=== PATIENT | female | born 1960 | race Hispanic/Latino ===

== ENCOUNTER 2025-06-26 15:19 | Emergency (ER) | payer OTHER, SELFPAY ==
--- NOTE | ~2025-06-26 | XR_ITS ---
EXAMINATION: XR toe 5th RT min 2V DATE: 06/26/2025 15:45 INDICATION: Injured right fifth toe. Stubbed toe. TECHNIQUE: 3 COMPARISON: None FINDINGS: [ No significant degenerative change.] Bones appear osteopenic. Mildly displaced fracture of the distal third of the proximal phalanx of the fifth toe with adjacent soft tissue swelling. No other fracture identified. [ No radiopaque foreign body.] [ No sclerotic or destructive bone lesions.] IMPRESSION: 1. Mildly displaced fracture of the distal third of the proximal phalanx of the fifth toe with adjacent soft tissue swelling. Reviewed, dictated and finalized at location Q.
--- NOTE | 2025-06-26 15:22 | ED.LOWEXIN ---
HPI - Extremity Injury (Lower) General Chief Complaint: Extremity Injury, Lower Stated Complaint: R stubbed pinky toe Source: patient and RN notes reviewed Mode of arrival: ambulatory Limitations: no limitations History of Present Illness HPI Narrative: patient is a 65-year-old female who presents to the [facility] with complaints of a right 5th toe injury. Patient states that she stubbed the toe on a case of bottled water in her kitchen approximately 3 weeks ago. She has had ongoing pain, swelling, and bruising to the right 5th toe since the incident. She reports limited range of motion of the toe. She is neurovascularly intact. Sensation is intact. Cap refill is normal. patient states that she has been wearing a walking boot since the injury. Related Data Home Medications ?Medication ?Instructions ?Recorded ?Confirmed ?Last Taken ?Type No Home Medications 06/26/25 06/26/25 Unknown History Allergies Allergy/AdvReac Type Severity Reaction Status Date / Time No Known Allergies Allergy Verified 06/26/25 15:30 Review of Systems Review of Systems: CONSTITUTIONAL: Denies fever, chills, or sweats. EYES: Denies visual changes, redness, or discharge. ENT: Denies otalgia and sore throat CARDIOVASCULAR: Denies chest pain, palpitations, or edema. RESPIRATORY: Denies cough or dyspnea. GASTROINTESTINAL: Denies abdominal pain, nausea, vomiting, or diarrhea. GENITOURINARY: Denies dysuria or hematuria. SKIN: Denies rash or itching. MUSCULOSKELETAL: Reports right 5th toe pain and swelling NEUROLOGIC: Denies headache, numbness, or weakness. Pertinent positives per HPI. PMFSH Comments At the time of my signature, I reviewed and agree with the nursing past medical, surgical, social, and family history. There is no relevant family history pertinent to the patient complaint. Exam Narrative: GENERAL: This is a well-nourished, well-developed patient, in no apparent distress. HEAD: normocephalic, atraumatic. EYES: PERRL. Sclera clear/white. Vision is grossly intact. EARS: External ears normal, auditory canals clear and without drainage, TMs normal without perforation. Hearing grossly intact. NOSE: External nose normal with no obvious nasal discharge, nares without redness, no rhinorrhea. THROAT: Mucous membranes moist, posterior pharynx clear. NECK: Neck supple, non-tender without lymphadenopathy, masses or thyromegaly. CARDIOVASCULAR: Regular rate and rhythm without murmurs, gallops, or rubs. RESPIRATORY: Clear to auscultation. Breath sounds equal bilaterally. No wheezes, rales, or rhonchi. GASTROINTESTINAL: Abdomen soft, non-tender, nondistended. Bowel sounds are active. No hepato-splenomegaly, or palpable masses. No guarding. SKIN: warm, intact with no suspicious lesions or rash, good texture and turgor. NEURO: awake, alert, and oriented to person, place and time. There were no obvious focal neurologic abnormalities. EXTREMITIES: Tenderness to the promixal phalanx of the right fifth toe with mild swelling and bruising. Limited ROM of the toe. Neurovascular status intact. Sensation intact. Cap refill normal. Course Course Level of Care: Express Care Visit Vital Signs Vital signs: Vital Signs Temperature 97.5 F L 06/26/25 15:30 Pulse Rate 80 06/26/25 15:30 Respiratory Rate 16 06/26/25 15:30 Blood Pressure 150/81 H 06/26/25 15:30 Pulse Oximetry 98 06/26/25 15:30 Temperature 97.5 F L 06/26/25 15:30 Pulse Rate 80 06/26/25 15:30 Respiratory Rate 16 06/26/25 15:30 Blood Pressure 150/81 H 06/26/25 15:30 Pulse Oximetry 98 06/26/25 15:30 Reviewed MDM - Extremity Injury (Lower) MDM Narrative Medical decision making narrative: Use the RICE method at home. If symptoms persist in 1 week after conservative treatment, follow-up with specialist. Differential Diagnosis Differential diagnosis: Likely fracture of toe and other (toe contusion, toe sprain) Imaging Data Attestation: I personally reviewed and interpreted this imaging study as follows: Radiologist's impression: [facility] [address] [facility] [place] [facility]– [place] [address] XRay Report Signed Patient: Deedee Jose : 1960 MR#: [id number] Age: 65 Acct:[id number] Loc: [facility] ADM Date: 06/26/[address]: Ordering Physician: Vinita Irby APRN Date of Service: 06/26/25 Procedure(s): XR toe 5th RT min 2V Accession Number(s): [id number] cc: Vinita Irby APRN; UNKNOWN,DOCTOR~ EXAMINATION: XR toe 5th RT min 2V DATE: 06/26/2025 15:45 INDICATION: Injured right fifth toe. Stubbed toe. TECHNIQUE: 3 COMPARISON: None FINDINGS: [ No significant degenerative change.] Bones appear osteopenic. Mildly displaced fracture of the distal third of the proximal phalanx of the fifth toe with adjacent soft tissue swelling. No other fracture identified. [ No radiopaque foreign body.] [ No sclerotic or destructive bone lesions.] IMPRESSION: 1. Mildly displaced fracture of the distal third of the proximal phalanx of the fifth toe with adjacent soft tissue swelling. Reviewed, dictated and finalized at location Q. Please be advised this is a medical document. It is intended for [id number] communication. It is written in medical language and may contain unfamiliar abbreviations or verbiage. Medical documents are intended to carry relevant information, facts as evident, and the clinical opinion of the practitioner at the time of the encounter. This report may have been done utilizing a voice recognition system. Attempts have been made to correct errors. However, there may be uncorrected grammatical, spelling, and recognition errors present. The file time of this note does not necessarily represent the time of service. Dictated By: David Funk MD 06/26/25 1552 Signed By: <Electronically signed by David Funk MD in OV> 06/26/25 1555 Critical Care Time Critical Care Time Critical Care Time: No Discharge Plan Discharge Clinical Impression: Closed disp fracture of proximal phalanx of lesser toe of right foot Qualifiers: Encounter type: initial encounter Qualified Code(s): S92.511A - Displaced fracture of proximal phalanx of right lesser toe(s), initial encounter for closed fracture Patient Disposition: Home Condition: Stable Instructions: Toe Fracture (ED), P.R.I.C.E. Treatment (ED) Additional Instructions: Use the RICE method at home. If symptoms persist in 1 week after conservative treatment, follow-up with specialist. Patient Language: Nauruan Prescriptions: No Action No Home Medications Follow-up/Referrals: UNKNOWN,DOCTOR [Primary Care Provider] Time of Disposition: 15:59
[2025-06-26 15:30] VITALS: BP 150/81; PULSE 80; RESP 16; TEMP 36.4; O2SAT 98
== END 2025-06-26 16:01 | disposition home or self-care (01) ==
PROVIDERS: Emergency Provider Nurse Practitioner
DX: S92.511A Displaced fracture of proximal phalanx of right lesser toe(s), initial encounter for closed fracture (principal); W22.8XXA Striking against or struck by other objects, initial encounter
CPT/HCPCS: 73660; 99203; G0463